=== PATIENT | male | born 1965 | race American Indian/Alaskan Native ===

== ENCOUNTER 2018-02-07 10:14 | Emergency (ER) | payer SELFPAY ==
[2018-02-07] MEDS ORDERED: CATAPRES ONE (18:11)
[2018-02-07] MEDS ORDERED: CATAPRES PO ONE (18:14)
--- NOTE | 2018-02-07 18:49 | Emergency Department Report ---
ED General Adult HPI - General Chief complaint: High BP Stated complaint: HIGH BP Source: patient Mode of arrival: Ambulatory Limitations: No Limitations - History of Present Illness Initial comments: Mr. Hu is a 52 yo male with severe HTN, prediabetes, dyslipidemia who presents with elevated blood pressure. He has ran out of his medications 2 months ago. He was unable to have his medications refilled in [place] because he has yet to establish medical care. he has recently moved from [place]. He was symptom free upon arrival. He only came for medication refill. However, after a 10 hour stay in the ED, he developed a slight nondescript headache. Denies visual changes. Denies chest pain. Denies paralysis and paresthesias. Severity scale (0 -10): 7 - Related Data Previous Rx's Medication Instructions Recorded Last Taken Type AtorvaSTATin [Lipitor] 10 mg PO QHS 30 Days #30 tab 02/07/18 Unknown Rx Lisinopril/Hydrochlorothiazide 2 tab PO QDAY 30 Days #60 tab 02/07/18 Unknown Rx [Zestoretic 20-12.5 mg] Metoprolol Xl [Metoprolol 2 tab PO QDAY 30 Days #60 tablet 02/07/18 Unknown Rx SUCCINATE ER TAB] amLODIPine [Norvasc] 10 mg PO DAILY 30 Days #30 tab 02/07/18 Unknown Rx hydrALAZINE [Apresoline TAB] 25 mg PO QID 30 Days #120 tablet 02/07/18 Unknown Rx metFORMIN [Glucophage] 2 tab PO BID 30 Days #60 tablet 02/07/18 Unknown Rx Allergies Allergy/AdvReac Type Severity Reaction Status Date / Time No Known Allergies Allergy Unverified 02/07/18 10:23 ED Review of Systems ROS: Stated complaint: HIGH BP Other details as noted in HPI Comment: All other systems reviewed and negative Constitutional: denies: fever, malaise Respiratory: denies: cough Cardiovascular: denies: chest pain ED Past Medical Hx - Past Medical History Hx Hypertension: Yes - Social History Smoking Status: Never Smoker Substance Use Type: None Other Social History: originally from [place], was a banker, now a registered nurse - Medications Home Medications: Home Medications Medication Instructions Recorded Confirmed Last Taken Type AtorvaSTATin [Lipitor] 10 mg PO QHS 30 Days #30 tab 02/07/18 Unknown Rx Lisinopril/Hydrochlorothiazide 2 tab PO QDAY 30 Days #60 tab 02/07/18 Unknown Rx [Zestoretic 20-12.5 mg] Metoprolol Xl [Metoprolol 2 tab PO QDAY 30 Days #60 tablet 02/07/18 Unknown Rx SUCCINATE ER TAB] amLODIPine [Norvasc] 10 mg PO DAILY 30 Days #30 tab 02/07/18 Unknown Rx hydrALAZINE [Apresoline TAB] 25 mg PO QID 30 Days #120 tablet 02/07/18 Unknown Rx metFORMIN [Glucophage] 2 tab PO BID 30 Days #60 tablet 02/07/18 Unknown Rx ED Physical Exam - General Limitations: No Limitations General appearance: alert, in no apparent distress, other (appears comfortable, NAD, energetic, articulate) - Head Head exam: Present: atraumatic, normocephalic - Eye Eye exam: Present: normal appearance - ENT ENT exam: Present: mucous membranes moist - Neck Neck exam: Present: normal inspection. Absent: tenderness, meningismus - Respiratory Respiratory exam: Present: normal lung sounds bilaterally. Absent: respiratory distress, wheezes, rales, rhonchi - Cardiovascular Cardiovascular Exam: Present: regular rate, normal rhythm, normal heart sounds. Absent: systolic murmur, diastolic murmur, rubs, gallop - GI/Abdominal GI/Abdominal exam: Present: soft, normal bowel sounds. Absent: distended, tenderness, guarding, rebound - Rectal Rectal exam: Present: deferred - Extremities Exam Extremities exam: Present: normal inspection - Back Exam Back exam: Present: normal inspection - Neurological Exam Neurological exam: Present: alert, oriented X3, CN II-XII intact, normal gait. Absent: motor sensory deficit - Psychiatric Psychiatric exam: Present: normal affect, normal mood - Skin Skin exam: Present: warm, dry, intact, normal color. Absent: rash ED Course Vital Signs 02/07/18 02/07/18 02/07/18 10:23 14:12 18:03 Temperature 98.4 F 98.2 F 98.3 F Pulse Rate 77 65 87 Respiratory 18 15 20 Rate Blood Pressure 200/112 184/121 Blood Pressure 192/106 [Right] O2 Sat by Pulse 98 99 98 Oximetry ED Medical Decision Making - EKG Data 02/07/18 18:48 Time obtained 10:25 NSR rate 60 bpm nl axis nl intervals nl ST elevation no signs of ischemia - Radiology Data Radiology results: image reviewed interpreted by me: CT head without acute process, no hemorrhage or skull fracture, two areas of hypoattenation in right frontal lobe and left occipital lobe - Medical Decision Making Mr. Hu presented initially with asymptomatic hypertension. He developed "slight" headache after 10 hours in the ED. NO indication of end organ damage. Given PO Clonidine and labetalol in ED. patient has severe HTN requiring 4 anti-hypertensive medications. I have provided 90 day prescriptions of all of the following meds: Amlodipine 10 mg PO once a day Atorvastatin 10 mg PO once a day Hydralazine 25 mg PO four times daily Lisinopril 20 mg-HCTZ 25 mg 2 tabs PO once a day Metformin 500 mg 2 tabs PO BID Metoprolol Succinate #$ 100 mg ER 2 tabs PO once a day Critical care attestation.: If time is entered above; I have spent that time in minutes in the direct care of this critically ill patient, excluding procedure time. ED Disposition Clinical Impression: Hypertensive urgency Disposition: DC- TO HOME OR SELFCARE Is pt being admited?: No Does the pt Need Aspirin: No Condition: Stable Instructions: Hypertension (ED), Hypertensive Crisis (ED) Prescriptions: AtorvaSTATin [Lipitor] 10 mg PO QHS 30 Days #30 tab amLODIPine [Norvasc] 10 mg PO DAILY 30 Days #30 tab hydrALAZINE [Apresoline TAB] 25 mg PO QID 30 Days #120 tablet Lisinopril/Hydrochlorothiazide [Zestoretic 20-12.5 mg] 2 tab PO QDAY 30 Days # 60 tab metFORMIN [Glucophage] 2 tab PO BID 30 Days #60 tablet Metoprolol Xl [Metoprolol SUCCINATE ER TAB] 2 tab PO QDAY 30 Days #60 tablet Referrals: [facility] [Outside] - 3-5 Days Forms: Work/School Release Form(ED) Time of Disposition: 19:02
[2018-02-07] MEDS ORDERED: NORMODYNE PO ONE (18:55)
[2018-02-07] MEDS ORDERED: NORMODYNE ONE (19:04)
--- NOTE | 2018-02-07 19:23 | Cat Scan Report ---
FINAL REPORT PROCEDURE: CT HEAD/BRAIN WO CON TECHNIQUE: Computerized tomography of the head was performed without contrast material. HISTORY: h/a,dizzines,malignant HTN COMPARISON: No prior studies are available for comparison. FINDINGS: There is parenchymal low-attenuation in the right superior parietal lobe, the left temporal occipital lobe, and right cerebellum, which have the appearance of encephalomalacia. No definite acute infarction is seen. No evidence of intracranial mass. No intracranial hemorrhage. No hydrocephalus. Intracranial arteries are symmetric in density. No fracture is seen. Visualized paranasal sinuses and mastoids are aerated. IMPRESSION: Chronic ischemic changes are seen bilaterally as described above. No definite acute infarction is seen, however if there is clinical indication of acute on chronic ischemia, recommend further evaluation with MRI
[2018-02-07 21:17] VITALS: BP 168/90
== END 2018-02-07 21:17 | disposition home or self-care (01) ==
LOC: ED 10:14
DX: I10 Essential (primary) hypertension (principal)
CPT/HCPCS: 70450; 93005; 93010

== ENCOUNTER 2018-06-19 21:14 | Emergency (ER) | payer SELFPAY ==
[2018-06-19] MEDS ORDERED: CATAPRES PO ONE (22:24)
[2018-06-19 22:37] LABS: Hematocrit 40.6 % (35.5-45.6); Hemoglobin 13.6 gm/dl (11.8-15.2); Mean Corpuscular HGB Conc 34 % (32-34); Mean Corpuscular Volume 96 fl (84-94); Platelet Count 165 K/mm3 (140-440); Red Blood Count 4.22 M/mm3 (3.65-5.03); Red Cell Distribution Width 13.7 % (13.2-15.2)
[2018-06-19 22:51] LABS: BUN/Creatinine Ratio 13; Blood Urea Nitrogen 21 mg/dL (9-20); Calcium 9.3 mg/dL (8.4-10.2); Hemolysis Index 23
--- NOTE | 2018-06-19 23:19 | XRay Report ---
FINAL REPORT PROCEDURE: Chest. TECHNIQUE: Portable AP view. HISTORY: Mild dyspnea. COMPARISON: No prior studies are available for comparison. FINDINGS: The heart size is mildly enlarged. There is mild tortuosity and ectasia of the thoracic aorta. The ranjana ngs are grossly clear. There are no pleural effusions. The soft tissues and regional skeleton are unr emarkable. IMPRESSION: Mild cardiomegaly.
[2018-06-19] MEDS ORDERED: APRESOLINE IV ONE (23:56)
--- NOTE | 2018-06-20 01:46 | Emergency Department Report ---
ED General Adult HPI - General Chief complaint: High BP Stated complaint: HBP Time Seen by Provider: 06/19/18 22:17 Source: patient Mode of arrival: Ambulatory Limitations: No Limitations - History of Present Illness Initial comments: Patient is a 52-year-old gentleman who is presenting with hypertension. Patient states he takes metoprolol XL however a review of medication list from January of this year he was discharged with Zestoretic and Norvasc hydralazine as well as Toprol-XL. Patient went to have a checkup earlier today and was told h is blood pressure was severely elevated. Patient states he has some mild shortness of breath with walking upstairs to his chronic but the patient otherwise denies any chest pain or discomfort resting shortness of breath or focal neurological deficits or decreased urination. Patient states he feels as though is his baseline at this time. - Related Data Previous Rx's Medication Instructions Recorded Last Taken Type Lisinopril/Hydrochlorothiazide 2 tab PO QDAY 30 Days #60 tab 02/07/18 Unknown Rx [Zestoretic 20-12.5 mg] AtorvaSTATin [Lipitor] 10 mg PO QHS 30 Days #30 tab 06/20/18 Unknown Rx Metoprolol Xl [Metoprolol 2 tab PO QDAY 30 Days #60 tablet 06/20/18 Unknown Rx SUCCINATE ER TAB] amLODIPine [Norvasc] 10 mg PO DAILY 30 Days #30 tab 06/20/18 Unknown Rx hydrALAZINE [Apresoline TAB] 25 mg PO QID 30 Days #120 tablet 06/20/18 Unknown Rx metFORMIN [Glucophage] 2 tab PO BID 30 Days #60 tablet 06/20/18 Unknown Rx Allergies Allergy/AdvReac Type Severity Reaction Status Date / Time No Known Allergies Allergy Unverified 02/07/18 10:23 ED Review of Systems ROS: Stated complaint: HBP Other details as noted in HPI Comment: All other systems reviewed and negative ED Past Medical Hx - Past Medical History Hx Hypertension: Yes - Social History Smoking Status: Never Smoker Substance Use Type: None - Medications Home Medications: Home Medications Medication Instructions Recorded Confirmed Last Taken Type Lisinopril/Hydrochlorothiazide 2 tab PO QDAY 30 Days #60 tab 02/07/18 Unknown Rx [Zestoretic 20-12.5 mg] AtorvaSTATin [Lipitor] 10 mg PO QHS 30 Days #30 tab 06/20/18 Unknown Rx Metoprolol Xl [Metoprolol 2 tab PO QDAY 30 Days #60 tablet 06/20/18 Unknown Rx SUCCINATE ER TAB] amLODIPine [Norvasc] 10 mg PO DAILY 30 Days #30 tab 06/20/18 Unknown Rx hydrALAZINE [Apresoline TAB] 25 mg PO QID 30 Days #120 tablet 06/20/18 Unknown Rx metFORMIN [Glucophage] 2 tab PO BID 30 Days #60 tablet 06/20/18 Unknown Rx ED Physical Exam - General Limitations: No Limitations General appearance: alert, in no apparent distress - Head Head exam: Present: atraumatic, normocephalic - Eye Eye exam: Present: normal appearance - ENT ENT exam: Present: mucous membranes moist - Neck Neck exam: Present: normal inspection - Respiratory Respiratory exam: Present: normal lung sounds bilaterally. Absent: respiratory distress, wheezes, rales, rhonchi - Cardiovascular Cardiovascular Exam: Present: regular rate, normal rhythm. Absent: systolic murmur, diastolic murmur, rubs, gallop - GI/Abdominal GI/Abdominal exam: Present: soft, normal bowel sounds. Absent: distended, tenderness, guarding, rebound - Rectal Rectal exam: Present: deferred - Extremities Exam Extremities exam: Present: normal inspection - Back Exam Back exam: Present: normal inspection - Neurological Exam Neurological exam: Present: alert, oriented X3 - Psychiatric Psychiatric exam: Present: normal affect, normal mood - Skin Skin exam: Present: warm, dry, intact, normal color. Absent: rash ED Course Vital Signs 06/19/18 06/19/18 06/19/18 21:42 22:19 22:31 Temperature 98.0 F Pulse Rate 74 67 Respiratory 18 24 21 Rate Blood Pressure 226/138 225/135 O2 Sat by Pulse 98 97 Oximetry 06/19/18 06/19/18 06/19/18 22:45 23:00 23:15 Temperature Pulse Rate 70 68 68 Respiratory 27 H 26 H 23 Rate Blood Pressure 225/135 211/118 211/118 O2 Sat by Pulse 97 95 95 Oximetry 06/19/18 06/19/18 06/19/18 23:26 23:31 23:45 Temperature Pulse Rate 70 71 Respiratory 20 27 H 21 Rate Blood Pressure 211/118 211/118 O2 Sat by Pulse 98 95 97 Oximetry 06/19/18 06/20/18 06/20/18 23:55 00:15 00:30 Temperature Pulse Rate 71 73 Respiratory 28 H 31 H Rate Blood Pressure 223/137 223/137 204/118 O2 Sat by Pulse 97 100 92 Oximetry 06/20/18 06/20/18 06/20/18 00:45 01:00 01:15 Temperature Pulse Rate 76 78 75 Respiratory 25 H 31 H 28 H Rate Blood Pressure 204/118 215/110 223/137 O2 Sat by Pulse 98 95 96 Oximetry 06/20/18 01:30 Temperature Pulse Rate 77 Respiratory 25 H Rate Blood Pressure 190/104 O2 Sat by Pulse 95 Oximetry ED Medical Decision Making - Lab Data Result diagrams: 06/19/18 22:05 06/19/18 22:05 Lab Results 06/19/18 06/19/18 Range/Units 22:05 22:05 WBC 8.0 (4.5-11.0) K/mm3 RBC 4.22 (3.65-5.03) M/mm3 Hgb 13.6 (11.8-15.2) gm/dl Hct 40.6 (35.5-45.6) % MCV 96 H (84-94) fl MCH 32 (28-32) pg MCHC 34 (32-34) % RDW 13.7 (13.2-15.2) % Plt Count 165 (140-440) K/mm3 Sodium 141 (137-145) mmol/L Potassium 3.8 (3.6-5.0) mmol/L Chloride 99.7 (98-107) mmol/L Carbon Dioxide 31 H (22-30) mmol/L Anion Gap 14 mmol/L BUN 21 H (9-20) mg/dL Creatinine 1.6 H (0.8-1.5) mg/dL Estimated GFR 55 ml/min BUN/Creatinine Ratio 13 % Glucose 191 H (75-100) mg/dL Calcium 9.3 (8.4-10.2) mg/dL Troponin T < 0.010 (0.00-0.029) ng/mL - EKG Data -: EKG Interpreted by Ri - EKG Data 06/20/18 01:44 EKG shows sinus rhythm a rate of 72 and normal axis normal and will there is septal Q waves present. Patient has no evidence of ST elevation or depressions. Time of interpretation is 2158 - Radiology Data Chest x-ray shows cardiomegaly with no other acute abdomen - Medical Decision Making The patient was given Catapres which did not improve blood pressure. Patient started on IV hydralazine which did bring the blood pressure down to a systolic of 190. This showsadequate reduction of the patient's blood pressure. Again patient is shown no signs of end organ damage however the patient does have a creatinine of 1.6 and he is alerted to this dean stressed that she ensure that she gets follow-up. Critical care attestation.: If time is entered above; I have spent that time in minutes in the direct care of this critically ill patient, excluding procedure time. ED Disposition Clinical Impression: Hypertensive urgency, Renal insufficiency Disposition: TO HOME OR SELFCARE Is pt being admited?: No Does the pt Need Aspirin: No Condition: Stable Instructions: Hypertension (ED) Prescriptions: AtorvaSTATin [Lipitor] 10 mg PO QHS 30 Days #30 tab amLODIPine [Norvasc] 10 mg PO DAILY 30 Days #30 tab hydrALAZINE [Apresoline TAB] 25 mg PO QID 30 Days #120 tablet metFORMIN [Glucophage] 2 tab PO BID 30 Days #60 tablet Metoprolol Xl [Metoprolol SUCCINATE ER TAB] 2 tab PO QDAY 30 Days #60 tablet Referrals: PRIMARY CAREMD [Primary Care Provider] - 3-5 Days KELTON KIRK MD [Staff Physician] - 3-5 Days Time of Disposition: 01:47
[2018-06-20 02:17] VITALS: BP 180/103
[2018-06-20] MEDS ORDERED: D50W (25GM) Syringe IV ONE (03:12)
== END 2018-06-20 04:05 | disposition home or self-care (01) ==
LOC: ED 21:14
DX: I16.0 Hypertensive urgency (principal); N28.9 Disorder of kidney and ureter, unspecified
CPT/HCPCS: 36415; 71045; 80048; 84484; 85027; 93005; 93010; 96374; 99284; J0360